=== PATIENT | female | born 1960 | race Caucasian/White ===

== ENCOUNTER 2016-12-01 16:37 | Emergency (ER) | payer SELFPAY ==
[~2016-12-01] VITALS: Ht 177.8 cm; Wt 96.9 kg
[~2016-12-01 16:37] MED LIST: CALA180T PO; OMPR20CCR PO
[2016-12-01 16:43] VITALS: BP 160/95; PULSE 102; RESP 16; TEMP 98.2; O2SAT 97
[2016-12-01] MEDS ORDERED: KETOROLAC TROMETHAMINE 60 MG/2 ML (IM) VIAL IM ONE (17:15)
[2016-12-01] MEDS ORDERED: ROBA500T PO (17:22)
[2016-12-01] MEDS ORDERED: IBUP800T23 PO (17:22)
--- NOTE | 2016-12-01 17:23 | PD ---
HPI Chief Complaint: Musculoskeletal Complaint Time Seen by Provider: 16:50 Travel History International Travel<30 days: No Contact w/Intl Traveler<30days: No Traveled to known affect area: No History of Present Illness HPI 56-year-old female presents emergency department for evaluation of right shoulder pain. 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 Since that time the shoulder has become increasingly more painful and she's had limited range of motion due to the pain. She denies numbness or tingling in the extremity. Reports no previous history rotator cuff injury or shoulder dislocation. PFSH Past Medical History Anxiety: Yes Heart Rhythm Problems: No Cardiac Catheterization: No Cardiovascular Problems: Yes ([place] 2012) High Cholesterol: No Chest Pain: Yes Congestive Heart Failure: No Coronary Artery Disease: Yes Diabetes: Yes (PRE-DIABETIC) Patient Takes Glucophage: No Diminished Hearing: No GERD: Yes Headaches: Yes (MIGRAINES) Hypertension: Yes Immunizations Current: Yes Migraines: Yes Myocardial Infarction: Yes Influenza Vaccination: Yes PNEUMOCCOCAL Vaccine (Year): 2 ?: Not Menopausal: Yes Tubal Ligation: Yes Past Surgical History Section: Yes Coronary Artery Bypass Graft: No Tonsillectomy: Yes Other Surgery: Yes (ORAL ) Family History Family Myocardial Infarction: Yes (FATHER x7, PATERNAL GRANDFATHER PASSED OF [place] ) Social History Alcohol Use: No Tobacco Use: Yes (2 PPD) Substance Use: No Allergies-Medications (Allergen,Severity, Reaction): Coded Allergies: Iodine (Verified Allergy, Severe, SWELLING, 12/01/16) Penicillin (Verified Allergy, Severe, STOPS BREATHING, 12/01/16) Bactrim (Verified Allergy, Intermediate, Rash, 12/01/16) Latex (Verified Allergy, Intermediate, Rash, 12/01/16) Demerol (Verified Allergy, Mild, Rash, 12/01/16) Reported Meds & Prescriptions Reported Meds & Active Scripts Active No Active Prescriptions or Reported Medications Review of Systems Except as stated in HPI: all other systems reviewed are Neg Physical Exam Narrative GENERAL: Alert, well-appearing female. SKIN: Focused skin assessment warm/dry. HEAD: Atraumatic. Normocephalic. EYES: Pupils equal and round. No scleral icterus. No injection or drainage. ENT: No nasal bleeding or discharge. Mucous membranes pink and moist. NECK: Trachea midline. No JVD. CARDIOVASCULAR: Regular rate and rhythm. No murmur appreciated. RESPIRATORY: No accessory muscle use. Clear to auscultation. Breath sounds equal bilaterally. GASTROINTESTINAL: Abdomen soft, non-tender, nondistended. Hepatic and splenic margins not palpable. MUSCULOSKELETAL: No obvious deformities. No clubbing. No cyanosis. No edema. Right shoulder is in normal alignment. No step-off. Tender to the posterior and anterior aspect of the shoulder. Limited abduction due to pain. Right upper extremity is neurovascularly intact. Normal sensation. NEUROLOGICAL: Awake and alert. No obvious cranial nerve deficits. Motor grossly within normal limits. Normal speech. PSYCHIATRIC: Appropriate mood and affect; insight and judgment normal. Data Data Last Documented VS Vital Signs Date Time Temp Pulse Resp B/P Pulse Ox O2 Delivery O2 Flow Rate FiO2 12/01/16 16:43 98.2 102 16 160/95 97 Orders Sling Cradle Arm (12/01/16 ) MDM Medical Decision Making Medical Screen Exam Complete: Yes Emergency Medical Condition: Yes Differential Diagnosis Right shoulder injury, rotator cuff injury, Narrative Course 56-year-old female presents emergency department for evaluation of right shoulder pain. 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 Since that time the patient shoulders become increasingly more painful and she's had decreased range of motion due to the pain. On exam there is no evidence of dislocation shoulders and normal alignment. The upper extremity is neurovascularly intact. Patient has tenderness to the anterior posterior aspect of the shoulder without deformity or swelling. Patient will be given a sling to rest the shoulder for 1 week and prescribed NSAIDs and some muscle relaxers for right trapezius muscle spasm. Diagnosis Primary Impression: Injury of shoulder Qualified Code: S49.91XA - Injury of shoulder, right, initial encounter Additional Impression: Muscle spasm Referrals: [facility] Patient Instructions: General Instructions, Rotator Cuff Injury (ED) Scripts Methocarbamol (Robaxin)500 Mg [id number] Mg PO TID PRN (MUSCLE SPASM) #12 TAB Prov:Karla Dewey 12/01/16 Ibuprofen 800 Mg [id number] Mg PO Q8H PRN (Pain/Inflammation) #30 TAB Prov:Karla Dewey 12/01/16 Disposition: 01 DISCHARGE HOME Condition: Stable Karla Dewey Dec 01, 2016 17:23
== END 2016-12-01 17:30 | disposition home or self-care (01) ==
LOC: PHEFT 16:37
DX: S49.91XA Unspecified injury of right shoulder and upper arm, initial encounter (principal); M62.838 Other muscle spasm; I10 Essential (primary) hypertension; R73.03 Prediabetes; F17.200 Nicotine dependence, unspecified, uncomplicated; I25.2 Old myocardial infarction; X58.XXXA Exposure to other specified factors, initial encounter; Y93.F2 Activity, caregiving, lifting; Y99.0 Civilian activity done for income or pay; Z86.59 Personal history of other mental and behavioral disorders; Z86.79 Personal history of other diseases of the circulatory system; Z87.19 Personal history of other diseases of the digestive system; Z86.69 Personal history of other diseases of the nervous system and sense organs
CPT/HCPCS: 99283; J1885

== ENCOUNTER 2017-09-06 09:28 | Emergency (ER) | payer SELFPAY ==
[~2017-09-06] VITALS: Ht 172.7 cm; Wt 97.0 kg
[~2017-09-06 09:28] MED LIST changes: -CALA180T PO; +IBUP1TAB7 PO; -OMPR20CCR PO; +ROBA500T PO
[2017-09-06 09:31] VITALS: BP 139/86; PULSE 94; RESP 16; TEMP 98; O2SAT 96
--- NOTE | 2017-09-06 09:50 | PD ---
HPI Chief Complaint: Injury Time Seen by Provider: 09:35 Travel History International Travel<30 days: No Contact w/Intl Traveler<30days: No Traveled to known affect area: No History of Present Illness HPI 56-year-old female that presents to the ED for evaluation of right ankle injury. Per patient's happened yesterday. 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 Did not hit anything else. She's been having pain on the lateral aspect of the ankle and foot since. Per patient she's been putting ice and taking [id number] remedies with some relief but she is concerned as the pain has not improved after 24 hours. Denies any previous injury to this area. Pain per patient is 7 out of 10 and gets worse with weightbearing. No other medical issues. She does have a scratch to her medial aspect of her leg which per patient is from her cat not from the fall. PFSH Past Medical History Anxiety: Yes Heart Rhythm Problems: No Cardiac Catheterization: No Cardiovascular Problems: Yes ([place] 2012) High Cholesterol: No Chest Pain: Yes Congestive Heart Failure: No Coronary Artery Disease: Yes Diabetes: Yes (PRE-DIABETIC) Patient Takes Glucophage: No Diminished Hearing: No GERD: Yes Headaches: Yes (MIGRAINES) Hypertension: Yes Immunizations Current: Yes Migraines: Yes Myocardial Infarction: Yes PNEUMOCCOCAL Vaccine (Year): 2 Menopausal: Yes Tubal Ligation: Yes Past Surgical History Section: Yes Coronary Artery Bypass Graft: No Tonsillectomy: Yes Other Surgery: Yes (ORAL ) Family History Family Myocardial Infarction: Yes (FATHER x7, PATERNAL GRANDFATHER PASSED OF [place] ) Social History Alcohol Use: No Tobacco Use: Yes (PD) Substance Use: No Allergies-Medications (Allergen,Severity, Reaction): Coded Allergies: iodine (Unverified Allergy, Severe, SWELLING, 09/06/17) penicillin G (Unverified Allergy, Severe, STOPS BREATHING, 09/06/17) potassium iodide (Unverified Allergy, Severe, SWELLING, 09/06/17) povidone-iodine (Unverified Allergy, Severe, SWELLING, 09/06/17) sodium iodide (Unverified Allergy, Severe, SWELLING, 09/06/17) sodium iodide (Unverified Allergy, Severe, SWELLING, 09/06/17) latex (Unverified Allergy, Intermediate, Rash, 09/06/17) sulfamethoxazole (Unverified Allergy, Intermediate, Rash, 09/06/17) trimethoprim (Unverified Allergy, Intermediate, Rash, 09/06/17) meperidine (Unverified Allergy, Mild, Rash, 09/06/17) Reported Meds & Prescriptions Reported Meds & Active Scripts Active Diclofenac Sodium DR (Diclofenac Sodium) 75 Mg Tabdr 75 Mg PO BID PRN Review of Systems Except as stated in HPI: all other systems reviewed are Neg Physical Exam Narrative GENERAL: SKIN: Warm and dry. HEAD: Atraumatic. Normocephalic. EYES: Pupils equal and round. No scleral icterus. No injection or drainage. ENT: No nasal bleeding or discharge. Mucous membranes pink and moist. NECK: Trachea midline. No JVD. CARDIOVASCULAR: Regular rate and rhythm. RESPIRATORY: No accessory muscle use. Clear to auscultation. Breath sounds equal bilaterally. GASTROINTESTINAL: Abdomen soft, non-tender, nondistended. Hepatic and splenic margins not palpable. MUSCULOSKELETAL: Extremities without clubbing, cyanosis, or edema. No obvious deformities. Patient has reproducible pain on the lateral aspect of the right ankle on the lateral malleolus as well as the fifth metatarsal. Some soft tissue swelling noted. Very tender to touch. 2+ pulses bilaterally. Full range of motion of the Ankle and foot otherwise. Patient can move the toe secondary to pain but able to do it passively. Good capillary refill. NEUROLOGICAL: Awake and alert. No obvious cranial nerve deficits. Motor grossly within normal limits. Five out of 5 muscle strength in the arms and legs. Normal speech. PSYCHIATRIC: Appropriate mood and affect; insight and judgment normal. Data Data Last Documented VS Vital Signs Date Time Temp Pulse Resp B/P (MAP) Pulse Ox O2 Delivery O2 Flow Rate FiO2 09/06/17 09:31 98.0 94 16 139/86 (103) 96 Orders Orders Ankle, Complete ([id number]) (09/06/17 09:41) Foot, Complete ([id number]) (09/06/17 09:41) Ed Discharge Order (09/06/17 10:23) Splint Or Brace Apply/Monitor (09/06/17 10:23) MDM Medical Decision Making Medical Screen Exam Complete: Yes Emergency Medical Condition: Yes Medical Record Reviewed: Yes Interpretation(s) xray of foot and ankle negative for acute disease Differential Diagnosis Fracture versus muscle strain versus sprain Narrative Course 56-year-old female that presents to the ED for evaluation of injury to the right ankle. Patient was properly examined and was found to have signs and symptoms concerning for fractures. X-rays were done. X-rays showed no sign of acute bony injury. Patient was reassured. At this time patient will be sent home with prescription for diclofenac sodium. Given crutches and a brace. Told to follow with PCP. See ED worsening symptoms. Diagnosis Primary Impression: Right ankle sprain Qualified Codes: S93.401A - Sprain of unspecified ligament of right ankle, initial encounter Patient Instructions: General Instructions Additional Instructions: Take medications as prescribed. Follow-up with PCP. See ED for any worsening symptoms. Do not drink or drive while taking pain medication. Apply ice or heat as needed for pain Med/Other Pt SpecificInfo: Prescription(s) given Scripts Diclofenac Sodium DR (Diclofenac Sodium DR) 75 Mg Tabdr 75 MG PO BID Y for PAIN SCALE 1 TO 10, #20 TAB 0 Refills Prov: Raymond Chatman MD 09/06/17 Disposition: 01 DISCHARGE HOME Condition: Sam Roland Sep 06, 2017 09:50
[2017-09-06] MEDS ORDERED: DICL75TA PO (10:19)
--- NOTE | 2017-09-06 10:21 | RADRPT ---
EXAM DATE/TIME: 09/06/2017 10:03 [facility] COMPARISON: No previous studies available for comparison. INDICATIONS : Fell, right foot and ankle pain MEDICAL HISTORY : None. SURGICAL HISTORY : None. ENCOUNTER: Initial ACUITY: 1 day PAIN SCORE: 3/10 LOCATION: Right foot FINDINGS: Three view examination of the right foot demonstrates no soft tissue swelling, dislocation, or fractu re. The tarsal bones appear intact. The interphalangeal and metatarsophalangeal joints are intact. The calcaneus is intact. Bony mineralization is normal. CONCLUSION: No evidence of acute fracture or significant soft tissue swelling. Payam Wheatley MD on September 06, 2017 at 10:19 Board Certified Radiologist. This report was verified electronically.
--- NOTE | 2017-09-06 10:21 | RADRPT ---
EXAM DATE/TIME: 09/06/2017 10:03 [facility] COMPARISON: No previous studies available for comparison. INDICATIONS : Fall, has right ankle and foot pain MEDICAL HISTORY : None. SURGICAL HISTORY : None. ENCOUNTER: Initial ACUITY: 1 day PAIN SCORE: 3/10 LOCATION: Right ankle FINDINGS: Soft tissue swelling is noted along the lateral ankle. The bony structures are intact. Ankle mortise is well-maintained. Mild arthropathy is noted. CONCLUSION: Soft tissue swelling without evidence of acute fracture or dislocation. Payam Wheatley MD on September 06, 2017 at 10:18 Board Certified Radiologist. This report was verified electronically.
== END 2017-09-06 10:41 | disposition home or self-care (01) ==
LOC: PHEFT 09:28
DX: S93.401A Sprain of unspecified ligament of right ankle, initial encounter (principal); I10 Essential (primary) hypertension; R73.03 Prediabetes; I25.10 Atherosclerotic heart disease of native coronary artery without angina pectoris; K21.9 Gastro-esophageal reflux disease without esophagitis; I25.2 Old myocardial infarction; F17.200 Nicotine dependence, unspecified, uncomplicated; W19.XXXA Unspecified fall, initial encounter; X50.1XXA Overexertion from prolonged static or awkward postures, initial encounter; Y93.F9 Activity, other caregiving; Z86.59 Personal history of other mental and behavioral disorders; Z86.69 Personal history of other diseases of the nervous system and sense organs
CPT/HCPCS: 73610; 73630; 99283; E0113; L1906